=== PATIENT | male | born 1985 | race Two or more races ===

== ENCOUNTER 2019-01-16 22:35 | Emergency (ER) | payer MEDICAID ==
[~2019-01-16] VITALS: Ht 177.8 cm; Wt 85.7 kg
[2019-01-16 22:58] LABS: BASOPHILS # (AUTO) 0.1 /CMM (0.0-0.2); BASOPHILS % (AUTO) 0.8 % (0.0-2.0); EOSINOPHILS % (AUTO) 0.4 % (0.0-6.0); HEMATOCRIT 41 % (39-51); HEMOGLOBIN 13.1 g/dL (13.5-17.5); LYMPHOCYTES # (AUTO) 1.9 /CMM (0.8-4.8); LYMPHOCYTES % (AUTO) 25.4 % (20.0-44.0); MEAN CORPUSCULAR HGB CONC 32 g/dl (31.0-36.0); MEAN CORPUSCULAR VOLUME 88 fL (80-96); MONOCYTES # (AUTO) 0.5 /CMM (0.1-1.30); MONOCYTES % (AUTO) 6.3 % (2.0-12.0); NEUTROPHILS % (AUTO) 67.1 % (43.0-81.0); PLATELET COUNT (AUTO) 218 /CMM (150-450); RED BLOOD CELL COUNT(AUTO) 4.62 MIL/uL (4.5-6.0); WHITE BLOOD COUNT (AUTO) 7.5 K/uL (4.3-11.0)
--- NOTE | 2019-01-16 23:00 | NUR ---
PT BRAYAN. C/O "FEELING SUICIDAL, WANT TO GO TO [facility], [facility]. PLAN TO OD ON PILLS". PATIENT TOOK 15 50 MG BENADRYL PER PT AND REPORT. -SOB AXO4. VSS. +SI. -HI. PATIENT WANDED, BELONGINGS TAKEN. NO ACUTE DISTRESS NOTED.
--- NOTE | 2019-01-16 23:02 | NUR ---
URINE COLLECTED AND SENT TO LAB
[2019-01-16 23:04] LABS: APPEARANCE,URINE Clear (CLEAR); BILIRUBIN,URINE Negative (NEGATIVE); BLOOD, URINE Trace-intact Ery/uL (NEGATIVE); COLOR,URINE Yellow (YELLOW); KETONES,URINE Negative (NEGATIVE); LEUKOCYTE ESTERASE ,URINE Negative (NEGATIVE); NITRITE, URINE Negative (NEGATIVE); PH,URINE 6.5 (5.0-8.0); PROTEIN,URINE Negative (NEGATIVE); UGLUCOSE Negative (NEGATIVE); UROBILINOGEN,URINE 0.2 EU/dL (0.2)
[2019-01-16 23:04] LABS: CALCIUM, SERUM 9.2 mg/dL (8.5-10.1); CARBON DIOXIDE 33 mmol/L (21-32); CHLORIDE 108 mmol/L (98-107); CREATININE 1.6 mg/dL (0.6-1.3); GLUCOSE 75 mg/dL (74-106); POTASSIUM 3.7 mmol/L (3.5-5.1); SODIUM SERUM 148 mmol/L (136-145); UREA NITROGEN, BLOOD 21 mg/dL (7-18)
[2019-01-16 23:17] LABS: ACETAMINOPHEN 0 ug/ml (10-30); ALANINE AMINOTRANSFERASE 40 U/L (12-78); ALCOHOL, BLOOD < 3 mg/dL (0-0); ALKALINE PHOSPHATASE 97 U/L (46-116); ASPARTATE AMINOTRANSFERASE 32 U/L (15-37); BILIRUBIN,TOTAL 0.2 mg/dL (0.2-1.0); SALICYLATE 0.6 mg/dL (2.8-20.0); TOTAL PROTEIN, SERUM 7.8 g/dL (6.4-8.2)
--- NOTE | 2019-01-17 | NUR ---
Patient is resting comfortably in bed with eyes closed. Easily aroused. VSS
--- NOTE | 2019-01-17 01:23 | NUR ---
Patient is resting comfortably in bed with eyes closed. Easily aroused. VSS
--- NOTE | 2019-01-17 05:42 | NUR ---
pt accepted to [facility]. WILL ARRANGE TRANSPORT AFTER 0730 AM PER INTAKE REQUEST (NO NURSES AVAILABLE FOR THIS PT AT THIS TIME). [phone] UN[address]
--- NOTE | 2019-01-17 06:12 | NUR ---
AMBULANCE ETA 6641 TO [facility]
--- NOTE | 2019-01-17 06:29 | NUR ---
PATIENT RESTING IN BED COMFORTABLY. AMBULATORY TO RESTROOM. NO COMPLAINTS AT THIS TIME.
--- NOTE | 2019-01-17 07:50 | NUR ---
CALLED FOR FOOD TRAY
[2019-01-17 08:02] VITALS: BP 142/87
--- NOTE | 2019-01-17 08:22 | NUR ---
adrian tray provided
--- NOTE | 2019-01-17 09:36 | NUR ---
ALL BELONGINGS IN HIS ASSIGNED LOCKER HANDED BY JOAQUINA TOLENTINO TO HIM
--- NOTE | 2019-01-17 09:43 | NUR ---
Patient picked up by [facility] [address] in stable condition. Patient will be brought to [facility]. All belongings returned to patient. Name band removed. Signed transfer acknowledgement.
[2019-01-17 13:23] LABS: RBC,URINE 0-2 /HPF (0-2); WBC,URINE NONE SEEN /HPF (0-3)
[2019-01-17 13:24] LABS: BACTERIA,URINE None seen /HPF (None Seen); SQUAMOUS EPITHELIAL CELL,UR None Seen /HPF (None Seen)
== END 2019-01-17 09:47 ==
LOC: ER 22:37
DX: R45.851 Suicidal ideations (principal); F12.10 Cannabis abuse, uncomplicated; F41.9 Anxiety disorder, unspecified; F32.9 Major depressive disorder, single episode, unspecified; Z88.8 Allergy status to other drugs, medicaments and biological substances
CPT/HCPCS: 36415; 80048; 80076; 80305; 80307; 80329; 81001; 85025; 99285; G0480; 81000-TC